=== PATIENT | male | born 1965 | race Caucasian/White ===

== ENCOUNTER 2020-08-17 18:06 | Emergency (ER) | payer BC, OTHER ==
--- NOTE | 2020-08-17 18:58 | RAD ---
EXAM: XR Left Knee, 3 Views CLINICAL HISTORY: left knee pain TECHNIQUE: Three views of the left knee. COMPARISON: No relevant prior studies available. FINDINGS: Bones/joints: No abnormality noted. No acute fracture. No dislocation. Soft tissues: No abnormality noted. IMPRESSION: No abnormality noted. Electronically signed by: Christina Gonzalez MD 08/17/2020 6:56 PM [facility]
--- NOTE | 2020-08-17 19:12 | ED.PDOC ---
History of Present Illness - General Chief Complaint: Lower Extremity Injury Stated Complaint: lt knee "buckled", pain. Time Seen by Provider: 08/17/20 18:31 Source: patient, RN notes reviewed, Vital Signs reviewed Exam Limitations: no limitations - History of Present Illness Initial Comments: Patient is a 54-year-old white male who presents with complaints of left knee pain. Patient states that while he was at work he stepped down and his left knee buckled and he experienced pain. It was sharp and burning in nature. It is constant. It is moderate in intensity. The pain is worse with movement or walking. The pain is improved with immobilization and rest. The pain does not radiate. Patient is unable to ambulate Occurred: just prior to arrival Severity: moderate Pain Location: lower extremity Method of Injury: unknown Improving Factors: immobilization Worsening Factors: movement Associated Symptoms (Fall): denies symptoms Allergies/Adverse Reactions: Allergies NO KNOWN ALLERGY Allergy (Verified 08/17/20 18:45) Home Medications: Ambulatory Orders Ketorolac Tromethamine [Toradol Tabs] 10 mg PO Q6H 5 Days #20 tab 08/17/20 Review of Systems - Review of Systems Constitutional: States: no symptoms reported, see HPI. Denies: chills, fever, malaise EENTM: States: no symptoms reported. Denies: eye pain, blurred vision, double vision Respiratory: States: no symptoms reported. Denies: cough, orthopnea, short of breath Cardiology: States: no symptoms reported. Denies: chest pain, palpitations, syncope Gastrointestinal/Abdominal: States: no symptoms reported. Denies: abdominal pain, diarrhea, nausea, vomiting Genitourinary: States: no symptoms reported. Denies: dysuria, frequency Musculoskeletal: States: see HPI, joint pain, joint swelling. Denies: back pain, muscle pain, muscle stiffness, neck pain Skin: States: no symptoms reported. Denies: change in color, rash Neurological: States: no symptoms reported. Denies: tingling, tremors, weakness Endocrine: States: no symptoms reported. Denies: increased hunger, increased thirst, increased urine Hematologic/Lymphatic: States: no symptoms reported. Denies: blood clots, easy bleeding All other Systems: Reviewed and Negative Past Medical History (General) - Patient Medical History Hx Seizures: No Hx Stroke: No Hx Dementia: No Hx Asthma: No Hx Cardiac Disorders: No Hx Congestive Heart Failure: No Hx Pacemaker: No Hx Hypertension: No Hx Thyroid Disease: No Hx Diabetes: No Hx Gastroesophageal Reflux: No Hx Renal Disease: No - Vaccination History Hx Tetanus, Diphtheria Vaccination: No Hx Influenza Vaccination: No Immunizations Up to Date: Yes - Social History Hx Tobacco Use: No Hx Alcohol Use: No Hx Substance Use Treatment: No Family Medical History - Family History Mother Living Status: Unknown Physical Exam - Physical Exam General Appearance: Alert, Anxious, Obese, Well Developed, Well Groomed, Well Hydrated, Well Nourished Head Injury: no evidence of injury Eye Exam: bilateral normal ENT Exam: hearing grossly normal, no evidence of ENT injury Neck Exam: non-tender, full range of motion, normal alignment Cardiovascular/Respiratory: regular rate, rhythm, normal peripheral pulses, no JVD, normal breath sounds, no respiratory distress Gastrointestinal/Abdominal: normal bowel sounds, non tender, soft, distended - Secondary to obesity Back Exam: normal inspection, no CVA tenderness, no vertebral tenderness Extremity Exam: no pedal edema, pelvis stable, pain with movement - Left knee. There is no varus or valgus laxity. Negative anterior posterior drawer sign. No crepitus of the knee. There is pain with movement. 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 08/17/20 19:13 Patient with no fracture on x-ray. He is unable to ambulate here in the department. Plan on knee immobilizer and crutches with follow-up with his Worker's Comp. doctor. I discussed this plan of care with the patient and his and they voiced understanding and agreement. I will write him off for a couple of days of work so that he can get the follow-up he needs. Dawood Mcmullen M.D. #[id number] - Results/Orders Results/Orders: EXAM: XR Left Knee, 3 Views CLINICAL HISTORY: left knee pain TECHNIQUE: Three views of the left knee. COMPARISON: No relevant prior studies available. FINDINGS: Bones/joints: No abnormality noted. No acute fracture. No dislocation. Soft tissues: No abnormality noted. IMPRESSION: No abnormality noted. Electronically signed by: Christina Gonzalez MD 08/17/2020 6:56 PM Vital Signs 08/17/20 18:19 Temperature 98.3 F Pulse Rate [ 76 monitor] Respiratory 20 Rate Blood Pressure 165/102 [Left Arm] O2 Sat by Pulse 98 Oximetry Departure - Departure Clinical Impression: Left knee pain Qualifiers: Chronicity: acute Qualified Code(s): M25.562 - Pain in left knee Left knee injury Qualifiers: Encounter type: initial encounter Qualified Code(s): S89.92XA - Unspecified injury of left lower leg, initial encounter Left knee sprain Qualifiers: Encounter type: initial encounter Involved ligament of knee: unspecified c ruciate ligament Qualified Code(s): S83.502A - Sprain of unspecified cruciate ligament of left knee, initial encounter Time of Disposition: 19:20 Disposition: Discharge to Home or Self Care Condition: Fair Departure Forms: ED Discharge - Pt. Copy, Patient Portal Self Enrollment Instructions: DI for Leg Pain, Internal Derangement of the Knee (DC), How to Make a Hot/Cold Rice Pack Diet: resume usual diet Activity: as per physical therapy, no pushing/pulling with affected limb Referrals: Lusi Gonsalves MD [Primary Care Provider] - 1-2 Days Prescriptions: Ketorolac Tromethamine [Toradol Tabs] 10 mg PO Q6H 5 Days #20 tab Home Medications: Ambulatory Orders Ketorolac Tromethamine [Toradol Tabs] 10 mg PO Q6H 5 Days #20 tab 08/17/20 Additional Instructions: Follow up with the Employer's Injury doctor in the next 1-2 days.
[2020-08-17] MEDS: KETOROLAC TROMETHAMINE INJ 30 MG/ML VIAL IM ONE (19:28)
[2020-08-17 20:02] VITALS: BP 145/99; TEMP 98; O2SAT 99
== END 2020-08-17 20:00 | disposition home or self-care (01) ==
LOC: ER 18:06
DX: S83.502A Sprain of unspecified cruciate ligament of left knee, initial encounter (principal); E66.9 Obesity, unspecified; X58.XXXA Exposure to other specified factors, initial encounter; Y93.01 Activity, walking, marching and hiking; Y99.0 Civilian activity done for income or pay; Y92.9 Unspecified place or not applicable; Z68.41 Body mass index [BMI] 40.0-44.9, adult
CPT/HCPCS: 73562; J1885